=== PATIENT | female | born 1945 | race Caucasian/White ===

== ENCOUNTER 2019-06-09 17:53 | Emergency (ER) | payer OTHER ==
[~2019-06-09] VITALS: Ht 172.7 cm; Wt 92.5 kg
[~2019-06-09 17:53] MED LIST: ATE50T PO; GLIP5TAB12 PO; LIS5T PO
[2019-06-09] MEDS ORDERED: MORPHINE SULFATE 4 MG/ML SYR/VIAL IV ONE (20:00)
[2019-06-09] MEDS ORDERED: ONDANSETRON HCL 4 MG/2 ML VIAL IV ONE ×2 (20:00→21:30)
[2019-06-09] MEDS ORDERED: HYDROmorphone HCL 2 MG/ML VL IV ONE (21:30)
[2019-06-10] MEDS ORDERED: HYDROmorphone HCL 2 MG/ML VL IV ONE ×3 (00:30→06:15)
[2019-06-10] MEDS ORDERED: ONDANSETRON HCL 4 MG/2 ML VIAL IV ONE (00:30)
[2019-06-10 04:02] LABS: INR 1.01 (0.9-1.15); Partial Thromboplastin Time 25.4 sec (23.64-32.05)
[2019-06-10 04:05] LABS: Basophils # (auto) 0 uL; Basophils % (auto) 0.3 % (0.0-2.0); Eosinophils # (auto) 0.2 uL; Eosinophils % (auto) 2.6 % (0.0-7.0); Hematocrit 35.6 % (36.0-46.0); Hemoglobin 11.9 g/dL (12.2-16.2); Lymphocytes # (auto) 1.1 uL; Lymphocytes % (auto) 15.4 % (10.0-50.0); Mean Corpuscular Hemoglobin 28.6 pg (28.0-32.0); Mean Corpuscular Hgb Conc. 33.4 g/dL (32.0-36.0); Mean Corpuscular Volume 85.8 fL (80.0-100.0); Monocytes # (auto) 0.6 uL; Monocytes % (auto) 8.8 % (0.0-12.0); Neutrophils # (auto) 5.1 uL; Neutrophils % (auto) 72.9 % (37.0-80.0); Platelet Count (auto) 144 10^3/uL (140-450); Red Blood Cells 4.15 10^6/uL (4.0-5.20); Red Cell Distribution Width 14.7 % (11.8-14.3)
[2019-06-10 04:10] LABS: Albumin 3.1 g/dL (3.4-5.0); Calcium 8.6 mg/dL (8.5-10.1); Potassium 3.7 mmol/L (3.5-5.1)
[2019-06-10 04:13] LABS: BUN/Creatinine Ratio 17.7; Bilirubin, Total 0.6 mg/dL (0.2-1.0); Total Protein 7.3 g/dL (6.4-8.2)
[2019-06-10] MEDS ORDERED: ONDANSETRON HCL 4 MG/2 ML VIAL ONE (08:21)
[2019-06-10] MEDS ORDERED: HYDROmorphone HCL 2 MG/ML VL ONE (08:21)
[2019-06-10] MEDS: HYDROmorphone HCL 2 MG/ML VL IV PRN ×5 (08:34→16:56)
[2019-06-10] MEDS: ONDANSETRON HCL 4 MG/2 ML VIAL IV PRN ×3 (08:34→16:56)
[2019-06-10 09:05] LABS: Urine Bacteria NONE SEEN /hpf (None Seen); Urine Blood Negative /uL (Negative); Urine Mucus FEW (None Seen); Urine Specific Gravity 1.029 (1.001-1.035); Urine WBC 2 /hpf (0 - 5)
[2019-06-10 16:54] VITALS: BP 109/67
== END 2019-06-10 17:09 | disposition short-term general hospital (02) ==
LOC: EDBD 17:53 → EDUNIT# 17:53 → ER 17:59
DX: S72.301A Unspecified fracture of shaft of right femur, initial encounter for closed fracture (principal); S32.401A Unspecified fracture of right acetabulum, initial encounter for closed fracture; E11.9 Type 2 diabetes mellitus without complications; I10 Essential (primary) hypertension; R93.0 Abnormal findings on diagnostic imaging of skull and head, not elsewhere classified; Z79.899 Other long term (current) drug therapy; W19.XXXA Unspecified fall, initial encounter; Y93.89 Activity, other specified; Y92.89 Other specified places as the place of occurrence of the external cause; Y99.8 Other external cause status
CPT/HCPCS: 36415; 70450; 71101; 73502; 73560; 80053; 81001; 85025; 85610; 85730; 96374; 96375; 96376; 99285; J1170; J2270; J2405; J7030